=== PATIENT | male | born 1980 | race American Indian/Alaskan Native ===

== ENCOUNTER → 2017-11-29 | Outpatient (REF) | payer OTHER ==
[2017-11-29 18:18] LABS: CHLAMYDIA DNA AMPLIFICATION NEGATIVE (NEGATIVE); GC DNA AMPLIFICATION NEGATIVE (NEGATIVE)
== END ==
LOC: M LAB REF 16:28
DX: N50.811 Right testicular pain (principal)

== ENCOUNTER → 2017-12-04 | Outpatient (CLI) | payer OTHER | LOC: M RAD 13:29 | DX: N50.811 Right testicular pain (principal) | CPT/HCPCS: 76870 ==